=== PATIENT | male | born 1995 | race Hispanic/Latino ===

== ENCOUNTER 2019-01-10 13:16 | Day surgery (SDC) | payer BC ==
[2019-01-10] MEDS ORDERED: Iothalamate Meglumine 60% 50 ML VIAL FS ONE (16:26)
[2019-01-10] MEDS ORDERED: Bupivacaine HCl 0.5%/Epinephrine 1:200,000/PF 30 ml Vial ONE (16:26)
[2019-01-10] MEDS ORDERED: Midazolam HCl 2 mg/2 ml Vial ONE (16:35)
[2019-01-10] MEDS ORDERED: Fentanyl 100 MCG/2 ML VIAL ONE (16:35)
[2019-01-10] MEDS ORDERED: Lidocaine 2% Jelly 5 ML TUBE ONE (16:36)
[2019-01-10] MEDS ORDERED: HYDROmorphone 0.5 MG/0.5 ML SYRINGE ONE (16:36)
[2019-01-10 17:23] LABS: ALT (SGPT) 20 U/L (8-55); AST (SGOT) 21 U/L (5-34); Albumin 4.2 g/dL (3.5-5.0); Alkaline Phosphatase 60 U/L (40-150); Bilirubin, Direct 0.3 mg/dL (0.1-0.3); Bilirubin, Total 3.4 mg/dL (0.2-1.2); Protein, Total 6.6 g/dL (6.0-8.3)
--- NOTE | 2019-01-10 23:54 | HP ---
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 He had lower abdominal pain and diarrhea, presented to the [facility]. He was evaluated there. White count 15, hemoglobin 14. He had comprehensive metabolic profile revealing a sodium of 137, potassium 4.3, BUN 16, creatinine 0.8. ALT 26, AST 32, total bilirubin of 3.2, albumin 4.3. Urinalysis was unremarkable. Because of his elevated bilirubin, he then underwent an ultrasound of his gallbladder. It revealed normal bile duct caliber without biliary dilatation. He had 2 small stones in the neck of the gallbladder. There was some gallbladder wall thickening. The patient was transferred to [facility] anticipating cholecystectomy. Further questioning revealed that he did not have any prior biliary symptoms. ALLERGIES: NONE. TOBACCO: None. ALCOHOL: Rarely. MEDICATIONS: None routinely. PAST MEDICAL HISTORY: Noncontributory. PAST SURGICAL HISTORY: Noncontributory. REVIEW OF SYSTEMS: Noncontributory. PHYSICAL EXAMINATION: VITAL SIGNS: Weight 161 pounds, 73 kg, height 70 inches, temperature 98 degrees, heart rate 63, respiratory rate 18, 100% sat. HEAD, EARS, EYES, NOSE, AND THROAT: Unremarkable. LUNGS: Clear to auscultation. CARDIAC: Regular rate and rhythm without murmur or gallop. ABDOMEN: Soft, nontender, nondistended. No masses. No hernias. EXTREMITIES: Unremarkable. LABORATORY DATA: I have personally reviewed his CD-ROM ultrasound with our radiologist. His biliary tree is slightly thickened. There is no biliary dilatation. There are 2 small stones, they are nonobstructive in the gallbladder. ASSESSMENT AND PLAN: Asymptomatic gallstones. I am uncertain as to for what reason his bilirubin is elevated. We did repeat stat hepatic functions, which are pending. At this point, since he is asymptomatic from a biliary standpoint, we will plan discharge home. He will follow up in my office in the next 1 to 2 weeks. We will follow up liver function tests in [facility]. One could consider cholecystectomy, cholangiograms given his young age, but at this point, we will observe and await repeat hepatic function tests and discuss with him further. Job ID: [id number]
== END 2019-01-10 17:27 | disposition home or self-care (01) ==
LOC: SDC 13:16
PROVIDERS: ATTEND Specialist
DX: K81.9 Cholecystitis, unspecified (principal); Z53.8 Procedure and treatment not carried out for other reasons
CPT/HCPCS: 36415; 80076; J0670; J1170; J1610; J2250; J3010